=== PATIENT | male | born 1985 | race Caucasian/White ===

== ENCOUNTER 2017-07-09 14:44 | Emergency (ER) | payer SELFPAY ==
[~2017-07-09] VITALS: Ht 175.3 cm; Wt 90.4 kg
[2017-07-09 16:07] VITALS: BP 131/81
--- NOTE | 2017-07-09 19:53 | NUR ---
PT TAKEN TO [facility]
--- NOTE | 2017-07-09 20:24 | NUR ---
PT HERE S/P INJURY AFTER WORKING-STATES "I STEPPED WRONG AND TWISTED MYSELF", PAIN TO LEFT LOWER BACK RADIATING TO LEFT LEF WITH MILD NUMBNESS/TINGLING. VERBALIZES IT WAS AFTER WORK. PT AMB, IN NAD. RESP EVEN AND UNLABORED. WAITING FOR ER MD LINDSEY.
[2017-07-09] MEDS ORDERED: DIAZEPAM 5 MG TAB PO ONE (20:35)
[2017-07-09] MEDS ORDERED: KETOROLAC 30 MG/ML VIAL IM ONE (20:35)
--- NOTE | 2017-07-09 21:03 | NUR ---
MARGO HICKEY WITH PT FOR RE-EVAL.
[2017-07-09 21:15] VITALS: BP 128/74
--- NOTE | 2017-07-09 21:15 | NUR ---
Patient discharged with v/s stable. Written and verbal after care instructions given and explained. Patient alert, oriented and verbalized understanding of instructions. Ambulatory with steady gait. All questions addressed prior to discharge. ID band removed. Patient advised to follow up with PMD. Rx of ROBAXIN, MOTRIN given. Patient educated on indication of medication including possible reaction and side effects. Opportunity to ask questions provided and answered.
== END 2017-07-09 21:15 | disposition home or self-care (01) ==
LOC: MED 14:44
DX: M54.42 Lumbago with sciatica, left side (principal)
CPT/HCPCS: 72110; 96372; 99284; J1885

== ENCOUNTER 2017-12-16 16:24 | Emergency (ER) | payer MEDICAID ==
[~2017-12-16] VITALS: Ht 175.3 cm; Wt 88.5 kg
[2017-12-16 16:26] VITALS: BP 144/87
[2017-12-16] MEDS ORDERED: KETOROLAC 60 MG/2 ML VIAL IM ONE (18:00)
[2017-12-16 18:33] VITALS: BP 142/85
== END 2017-12-16 18:32 | disposition home or self-care (01) ==
LOC: MED 16:24
DX: M94.0 Chondrocostal junction syndrome [Tietze] (principal)
CPT/HCPCS: 93005; 96372; 99283; J1885

== ENCOUNTER 2017-12-31 17:38 | Emergency (ER) | payer MEDICAID ==
[~2017-12-31] VITALS: Ht 175.3 cm; Wt 90.7 kg
[2017-12-31 18:05] VITALS: BP 144/98
--- NOTE | 2017-12-31 18:20 | NUR ---
PT. CAME INTO THE ED DUE TO SORE THROAT X 3 DAYS. PT. STATES I HAVE HAD A SORE THROUGHT FOR ABOUT 3 WEEKS BUT HAS GOTTEN WORSE THE LAST 3 DAYS, MY APPETITE HAS GONE DOWN". PT. IS AAOX4, RR EVEN AND UNLABORED. DENIES SOB, DENIES CHEST PAIN, 2/10 PAIN IN THROAT. PT. DENIES N/V/D, DENIES FEVERS. ER MD NOTIFIED. WILL CONTINUE TO MONITOR.
--- NOTE | 2017-12-31 18:33 | NUR ---
COLLECTED STREP THROAT SPECIMEN, PT. TOLERATED WELL. WILL CONTINUE TO MONITOR.
--- NOTE | 2017-12-31 19:15 | NUR ---
Pt report given to BRANNON ORTEZ . Transfer of care at this time.
--- NOTE | 2017-12-31 19:16 | NUR ---
PT LAYING IN BED, IN NO ACUTE DISTRESS AT THIS TIME.
--- NOTE | 2017-12-31 20:00 | NUR ---
CALLED LAB, CONFIRMED SPECIMEN COLLECTED FOR RAPID STREP SCREEN.
[2017-12-31] MEDS ORDERED: IBUPROFEN 600 MG TAB PO ONE (21:05)
[2017-12-31] MEDS ORDERED: predniSONE 20 MG TAB PO ONE (21:05)
--- NOTE | 2017-12-31 21:07 | NUR ---
LAB WAS CALLED AT THIS TIME INQUIRING ABOUT THE PENDING RAPID STREP CULTURE. LAB STATES THE WILL FIND OUT AND CALL BACK REGARDING RESULTS. ER MD MONREAL NOTIFIED.
--- NOTE | 2017-12-31 22:05 | NUR ---
MARGO HICKEY AT BEDSIDE.
[2017-12-31 23:15] VITALS: BP 139/82
--- NOTE | 2017-12-31 23:15 | NUR ---
PT REQUESTS TO LEAVE AND GET D/C PAPERS IN THE MORNING.
--- NOTE | 2017-12-31 23:15 | NUR ---
Patient discharged with v/s stable. Written and verbal after care instructions given and explained. Patient alert, oriented and verbalized understanding of instructions. Ambulatory with steady gait. All questions addressed prior to discharge. ID band removed. Patient advised to follow up with PMD. Rx of AMOXICILLIN, PREDNISONE, IBUPROFEN given. PT LEFT WITH OUT D/C INSTRUCTIONS ASKED TO [employer] PAPERS IN AM.
== END 2017-12-31 23:15 | disposition home or self-care (01) ==
LOC: MED 17:38
DX: J02.8 Acute pharyngitis due to other specified organisms (principal)
CPT/HCPCS: 87081; 99284; J7512

== ENCOUNTER 2019-05-22 17:39 | Emergency (ER) | payer OTHER ==
[~2019-05-22] VITALS: Ht 175.3 cm; Wt 90.7 kg
[2019-05-22 17:58] VITALS: BP 158/77
--- NOTE | 2019-05-22 18:06 | NUR ---
DR. CRUM CHECKED EKG, PT IS OK TO WAIT IN LOBBY SINCE WE DO HAVE BED AVAILABLE YET. PT AMBULATES TO LOBBY WITH STABLE VITALS .
--- NOTE | 2019-05-22 18:43 | NUR ---
PT TAKEN TO BED 7.
--- NOTE | 2019-05-22 18:53 | NUR ---
X RAY AT BEDSIDE
--- NOTE | 2019-05-22 19:09 | NUR ---
PT PRESENTS TO THE ED WITH C/O SQUEEZING CHEST PAIN AND SHARP LEFT SIDE HEADACHE X 3 DAYS, PT STATES PAIN COMES AND GOES AND IS NOT CONSTANT. PT RATES PAIN 2/10 AT THIS TIME. PT ALSO C/O RIGHT FLANK PAIN X 2 DAYS AND GETTING WORSE TODAY. PT STATED HE THROWED UP FRESH BLOOD ABOUT 30 CC THIS MORNING. BOWEL SOUNDS ACTIVE IN ALL QUADRANTS. PT DENIES DIARRHEA AND SAYS THAT HE NOTICES AN APPETITE CHANGE. LAST BM 05/20/19. SKIN IS WARM, PINK, AND DRY. PT PRESENTS WITH A CLEAR SPEECH AND IS CONVERSING APPROPRIATELY. HOB ELEVATED, PT POSITIONED FOR COMFORT. ER MD TO SEE PT. ROS HX: microdiscectomy ( 2 YEARS AGO) RX: DENIES
[2019-05-22] MEDS: NACL 0.9% 1,000 ML IV ONE (20:14)
[2019-05-22] MEDS: ONDANSETRON 4 MG/2 ML VIAL IVP ONE (20:15)
--- NOTE | 2019-05-22 20:19 | NUR ---
ULTRASOUND AT BEDSIDE.
--- NOTE | 2019-05-22 20:30 | NUR ---
LAB AT BEDSIDE.
[2019-05-22 20:43] LABS: BASOPHILS # (AUTO) 0.1 K/uL (0.00-0.22); BASOPHILS % (AUTO) 0.5 % (0.0-2.0); EOSINOPHILS # (AUTO) 0.1 K/uL (0-0.4); EOSINOPHILS % (AUTO) 0.4 % (0.0-4.0); HEMATOCRIT 45.1 % (36-52); LYMPHOCYTES # (AUTO) 3.5 K/uL (2.0-11.5); LYMPHOCYTES % (AUTO) 26.6 % (20.5-51.1); MEAN CORPUSCULAR HEMOGLOBIN 30 pg (27-31); MEAN CORPUSCULAR HGB CONC 33 g/dL (33-37); MEAN CORPUSCULAR VOLUME 88.7 fL (80-94); MONOCYTES # (AUTO) 1.2 K/uL (0.8-1.0); MONOCYTES % (AUTO) 8.9 % (1.7-9.3); NEUTROPHILS # (AUTO) 8.3 K/uL (1.8-7.7); NEUTROPHILS % (AUTO) 63.6 % (42.2-75.2); PLATELET COUNT (AUTO) 146 K/uL (140-450); RED BLOOD CELL COUNT(AUTO) 5.08 MIL/uL (4.20-6.10); RED CELL DISTRIBUTION WIDTH 13.2 % (11.6-13.7); WHITE BLOOD COUNT (AUTO) 13.1 K/uL (4.8-10.8)
[2019-05-22 21:09] LABS: ANION GAP 14.6 (8-16); CARBON DIOXIDE 27.3 mmol/L (21-32); CREATININE 0.8 mg/dL (0.7-1.3); POTASSIUM 3.9 mmol/L (3.5-5.1)
[2019-05-22 21:15] LABS: ALBUMIN 3.9 g/dL (3.4-5.0); TOTAL BILIRUBIN 0.9 mg/dL (0.0-1.0)
--- NOTE | 2019-05-22 21:36 | NUR ---
Pt report given to BRANNON MURILLO. Transfer of care at this time.
--- NOTE | 2019-05-22 22:00 | NUR ---
patient sitting up in bed. aao.
--- NOTE | 2019-05-22 22:05 | NUR ---
hooked up to heart monitor.
[2019-05-22 22:40] VITALS: BP 138/65
--- NOTE | 2019-05-22 22:41 | NUR ---
Patient discharged with v/s stable. Written and verbal after care instructions given and explained. Patient alert, oriented and verbalized understanding of instructions. Ambulatory with steady gait. All questions addressed prior to discharge. ID band removed. Patient advised to follow up with PMD. Rx of Zofran, Motrin given. Patient educated on indication of medication including possible reaction and side effects. Opportunity to ask questions provided and answered. IV removed.
== END 2019-05-22 22:40 | disposition home or self-care (01) ==
LOC: MED 17:39
DX: R16.0 Hepatomegaly, not elsewhere classified (principal); R11.10 Vomiting, unspecified; Z79.899 Other long term (current) drug therapy
CPT/HCPCS: 36415; 71045; 76705; 80053; 83690; 84484; 85025; 93005; 96361; 96374; 99284; J2405; J7030; Q0092